=== PATIENT | male | born 1985 | race American Indian/Alaskan Native ===

== ENCOUNTER 2019-08-18 12:57 | Emergency (ER) | payer SELFPAY | END 2019-08-18 13:40 | disposition left against medical advice (07) | LOC: ED 12:57 | DX: S99.921A Unspecified injury of right foot, initial encounter (principal); Z53.21 Procedure and treatment not carried out due to patient leaving prior to being seen by health care provider; X58.XXXA Exposure to other specified factors, initial encounter; Y93.89 Activity, other specified; Y92.89 Other specified places as the place of occurrence of the external cause; Y99.8 Other external cause status ==

== ENCOUNTER 2019-08-20 05:05 | Emergency (ER) | payer SELFPAY ==
--- NOTE | 2019-08-20 05:52 | XRay Report ---
RIGHT FOOT 3 VIEWS INDICATION / CLINICAL INFORMATION: Right foot pain and swelling. COMPARISON: None available. FINDINGS: BONES / JOINT(S): There is moderate hallux valgus with mild associated bunion formation overlying the first metatarsal head medially. I see no evidence of fracture, dislocation or destructive lesion. SOFT TISSUES: No significant abnormality. ADDITIONAL FINDINGS: None. Signer Name: Riley Curry MD Signed: 08/20/2019 5:48 AM Workstation Name: [id number]
--- NOTE | 2019-08-20 09:35 | Emergency Department Report ---
ED Lower Extremity HPI - General Chief Complaint: Extremity Injury, Lower Stated Complaint: RT FOOT TOE INJURY Time Seen by Provider: 08/20/19 07:47 Source: patient Mode of arrival: Ambulatory Limitations: No Limitations - History of Present Illness Initial Comments: This is a 34-year-old -[place] male who presents to the emergency room with right great toe swelling and pain for one week. Patient states he was vacuuming and lifting a couch and it hit his right great toe on descent. Patient states he is applying ice and elevating they cannot control pain. Reports fracture to right great toe several years ago and reports symptoms are similar. Patient states he is able to apply a light weight to right lower extremity. He reports worsening pain with ambulation or movement. He describes pain as a achy intensity. MD Complaint: foot injury (right great toe pain and swelling) Onset/Timin -: week(s) Injury: Toes: Right (first toe) Type of Injury: blunt Place: home Severity: moderate Severity scale (0 -10): 7 Improves With: NSAID, cold therapy Worsens With: weight bearing, movement Context: direct blow Associated Symptoms: swelling, able to partially bear weight, ambulatory. denies: snap/pop sensation, numbness, tingling Treatments Prior to Arrival: cold therapy, NSAIDS - Related Data Home Medications Medication Instructions Recorded Confirmed Last Taken No Known Home Medications [No 12/17/14 12/17/14 Unknown Reported Home Medications] Allergies Allergy/AdvReac Type Severity Reaction Status Date / Time No Known Allergies Allergy Verified 08/20/19 05:10 ED Review of Systems ROS: Stated complaint: RT FOOT TOE INJURY Other details as noted in HPI Constitutional: denies: chills, fever Respiratory: denies: cough, shortness of breath, wheezing Cardiovascular: denies: chest pain, palpitations Musculoskeletal: joint swelling (right great toe), arthralgia (right great toe pain and swelling). denies: back pain Skin: denies: rash, lesions Neurological: denies: headache, weakness, paresthesias Psychiatric: denies: anxiety, depression ED Past Medical Hx - Past Medical History Previous Medical History?: Yes Hx Asthma: Yes (as child) - Surgical History Past Surgical History?: Yes Additional Surgical History: hernia repair - Social History Smoking Status: Never Smoker Substance Use Type: Alcohol - Medications Home Medications: Home Medications Medication Instructions Recorded Confirmed Last Taken Type No Known Home Medications [No 12/17/14 12/17/14 Unknown History Reported Home Medications] ED Physical Exam - General Limitations: No Limitations General appearance: alert, in no apparent distress - Respiratory Respiratory exam: Present: normal lung sounds bilaterally. Absent: respiratory distress - Cardiovascular Cardiovascular Exam: Present: regular rate, normal rhythm. Absent: systolic murmur, diastolic murmur, rubs, gallop - GI/Abdominal GI/Abdominal exam: Present: soft, normal bowel sounds - Expanded Lower Extremity Exam Right Lower Leg exam: Present: normal inspection, full ROM Ankle exam: Present: normal inspection, full ROM Foot/Toe exam: Present: tenderness (tenderness and swelling first metatarsal head, bunion, TTP), swelling. Absent: full ROM (Limited range of motion 2/2 to pain), abrasion, laceration, ecchymosis, dislocation, erythema, subungual hematoma Neuro vascular tendon exam: Present: no vascular compromise Gait: Positive: observed and limited by pain - Neurological Exam Neurological exam: Present: alert, oriented X3, normal gait - Psychiatric Psychiatric exam: Present: normal affect, normal mood - Skin Skin exam: Present: warm, dry, intact, normal color. Absent: rash ED Lower Extremity MDM - Radiology Data Radiology results: report reviewed RIGHT FOOT 3 VIEWS INDICATION / CLINICAL INFORMATION: Right foot pain and swelling. COMPARISON: None available. FINDINGS: BONES / JOINT(S): There is moderate hallux valgus with mild associated bunion formation overlying the first metatarsal head medially. I see no evidence of fracture, dislocation or destructive lesion. SOFT TISSUES: No significant abnormality. ADDITIONAL FINDINGS: None. - Medical Decision Making This is a 34 y.o. male presents with swelling and pain of her right first phalanx. Vitals are stable inpatient in no acute distress. Tenderness and swelling first metatarsal head, bunion, TTP, limited range of motion 2/2 pain. X-ray of right toe with no acute findings. Patient informed of results. Strain or sprain of the first phalanx. The right first and second toes were edvin taped. Given RICE therapy instructions. Instructed to take NSAIDs for pain. Crutches and education given. Start tramadol. Plan discussed with patient to discharge home and treat outpatient. He agrees with ER plan. Patient discharged home in stable condition. Follow up with PCP in 2-3 days. Critical care attestation.: If time is entered above; I have spent that time in minutes in the direct care of this critically ill patient, excluding procedure time. ED Disposition Clinical Impression: Toe pain, right Sprain of toe Qualifiers: Encounter type: initial encounter Qualified Code(s): S93.509A - Unspecified sprain of unspecified toe(s), initial encounter Disposition: TO HOME OR SELFCARE Is pt being admited?: No Condition: Stable Instructions: Foot Sprain (ED), RICE Therapy (ED), Crutch Instructions (ED) Additional Instructions: Rest Use ice or heat on affected area for 20 minutes and off for 2 hours. Take pain medication as needed for pain. Don't drive or operate heavy machinery while taking muscle relaxers because they may cause drowsiness. Follow up with Primary Care Provider in 2-3 days. Referrals: JENISE JEAN MD [Other] - 3-5 Days Forms: Work/School Release Form(ED) Time of Disposition: 09:40
== END 2019-08-20 10:10 | disposition home or self-care (01) ==
LOC: ED 05:05
DX: S93.509A Unspecified sprain of unspecified toe(s), initial encounter (principal); J45.909 Unspecified asthma, uncomplicated; Z98.890 Other specified postprocedural states; Z79.899 Other long term (current) drug therapy; X58.XXXA Exposure to other specified factors, initial encounter; Y93.89 Activity, other specified; Y92.89 Other specified places as the place of occurrence of the external cause; Y99.8 Other external cause status